=== PATIENT | female | born 1935 | race Caucasian/White ===

== ENCOUNTER → 2016-03-28 14:16 | Outpatient (CLI) | payer MEDICARE, OTHER ==
[2013-04-12 10:15] VITALS: BMI 26.7
[~2016-03-28 14:16] MED LIST: ACCUPRIL20 MG PO; ACCUPRIL5 MG; ACCURETIC 20-121 TAB OR; ASPIRIN325 MG PO; COSOPT EYE DROPS5 ML EACH EYE; HYDROCHLOROTH12.5 M1 PO; LEVOTHROID112 MCG PO; LOPRESSOR25 MG PO; LUMIGAN 0.03 %2.5 ML EACH EYE; SULAR34 MG PO; TYLENOL 325 MG325 MG PO; ZOCOR20 MG PO
== END | disposition home or self-care (01) ==
LOC: D.LAB 14:16
DX: E03.9 Hypothyroidism, unspecified (principal)

== ENCOUNTER → 2017-06-09 10:36 | Outpatient (CLI) | payer MEDICARE, OTHER ==
[2013-04-12 10:15] VITALS: BMI 26.7
[2017-06-09 11:12] LABS: BASOPHILS 0.4 % (0-2); EOSINOPHILS 2.2 % (0-7); HEMATOCRIT 41.5 % (36.0-48.0); HEMOGLOBIN 13.5 g/dL (12-16); LYMPHOCYTES 14.1 % (15-50); MCH 33.3 pg (26.0-34.0); MCHC 32.5 g/dL (31.0-37.0); MCV 102.5 fL (80.0-100.0); MEAN PLATELET VOLUME 9.2 fL (7.4-10.4); MONOCYTES 9.6 % (2-11); NEUTROPHILS 73.7 % (40-80); PLATELET COUNT 149 10x3/uL (130-400); RBC 4.05 10x6/uL (4.00-5.40); RDW 13.4 % (11.5-14.5); WBC 4.5 10x3/uL (4.8-10.8)
[2017-06-09 11:47] LABS: ALBUMIN 3.9 g/dL (3.4-5.0); ANION GAP 15.2 mmol/L (8-16); BILIRUBIN - TOTAL 0.44 mg/dL (0.2-1.3); CALCIUM 9.1 mg/dL (8.5-10.1); CARBON DIOXIDE 27.6 mmol/L (21.0-32.0); CHOL - HDL RATIO 1.7 ratio (2.3-4.1); CREATININE - SERUM 1.2 mg/dL (0.6-1.3); LDL-HDL RATIO 0.6 ratio (1.5-3.5); POTASSIUM - SERUM 3.8 mmol/L (3.5-5.1); PROTEIN - SERUM 7.5 g/dL (6.4-8.2); THYROID STIMULATING HORMONE 5.3 uIU/mL (0.36-3.74)
== END | disposition home or self-care (01) ==
LOC: D.LAB 10:36
PROVIDERS: Family Medicine
DX: Z00.00 Encounter for general adult medical examination without abnormal findings (principal); E03.9 Hypothyroidism, unspecified; I10 Essential (primary) hypertension

== ENCOUNTER → 2017-09-09 09:03 | Outpatient (CLI) | payer MEDICARE, OTHER ==
[2013-04-12 10:15] VITALS: BMI 26.7
== END | disposition home or self-care (01) ==
LOC: D.LAB 09-08 08:15
DX: E03.9 Hypothyroidism, unspecified (principal)

== ENCOUNTER → 2018-01-08 10:06 | Outpatient (CLI) | payer MEDICARE, OTHER ==
[2013-04-12 10:15] VITALS: BMI 26.7
== END | disposition home or self-care (01) ==
LOC: D.LAB 08:00
DX: E03.9 Hypothyroidism, unspecified (principal)

== ENCOUNTER → 2018-03-12 10:21 | Outpatient (CLI) | payer MEDICARE, OTHER ==
[2013-04-12 10:15] VITALS: BMI 26.7
== END | disposition home or self-care (01) ==
LOC: D.LAB 08:00
DX: E03.9 Hypothyroidism, unspecified (principal)

== ENCOUNTER → 2018-05-20 10:30 | Outpatient (CLI) | payer MEDICARE, OTHER ==
[2013-04-12 10:15] VITALS: BMI 26.7
== END | disposition home or self-care (01) ==
LOC: D.LAB 10:30
PROVIDERS: ATTEND Family Medicine
DX: E03.9 Hypothyroidism, unspecified (principal); R42 Dizziness and giddiness; M19.90 Unspecified osteoarthritis, unspecified site; I10 Essential (primary) hypertension

== ENCOUNTER → 2018-06-12 15:05 | Outpatient (CLI) | payer MEDICARE, OTHER ==
[2013-04-12 10:15] VITALS: BMI 26.7
[2018-06-12 16:20] LABS: HEMATOCRIT 38.4 % (36.0-48.0); HEMOGLOBIN 12.7 g/dL (12-16); LYMPHOCYTES 8.8 % (15-50); MCH 32.7 pg (26.0-34.0); MCHC 33.1 g/dL (31.0-37.0); MEAN PLATELET VOLUME 9.2 fL (7.4-10.4); NEUTROPHILS 80.5 % (40-80); PLATELET COUNT 166 10x3/uL (130-400); RBC 3.88 10x6/uL (4.00-5.40); WBC 5.8 10x3/uL (4.8-10.8)
[2018-06-12 16:35] LABS: ALBUMIN 3.5 g/dL (3.4-5.0); ANION GAP 12.9 mmol/L (8-16); BILIRUBIN - TOTAL 0.36 mg/dL (0.2-1.3); CALCIUM 8.5 mg/dL (8.5-10.1); CARBON DIOXIDE 31.5 mmol/L (21.0-32.0); CHOL - HDL RATIO 1.8 ratio (2.3-4.1); CREATININE - SERUM 1.2 mg/dL (0.6-1.3); LDL-HDL RATIO 0.7 ratio (1.5-3.5); POTASSIUM - SERUM 3.4 mmol/L (3.5-5.1); PRE-ALBUMIN 19.9 mg/dL (18.0-35.7); PROTEIN - SERUM 6.7 g/dL (6.4-8.2)
== END | disposition home or self-care (01) ==
LOC: D.US 15:00
PROVIDERS: ATTEND Family Medicine
DX: R60.0 Localized edema (principal); M79.605 Pain in left leg; M79.604 Pain in right leg

== ENCOUNTER → 2018-07-21 11:03 | Outpatient (CLI) | payer MEDICARE, OTHER ==
[2013-04-12 10:15] VITALS: BMI 26.7
== END | disposition home or self-care (01) ==
LOC: D.LAB 11:03
PROVIDERS: ATTEND Family Medicine
DX: E03.9 Hypothyroidism, unspecified (principal)

== ENCOUNTER 2018-09-10 14:54 | Emergency (ER) | payer MEDICARE, OTHER ==
[~2018-09-10] VITALS: Ht 165.1 cm; Wt 63.6 kg
[2018-09-10 15:23] LABS: BASOPHILS 0.3 % (0-2); EOSINOPHILS 1.1 % (0-7); HEMATOCRIT 40.6 % (36.0-48.0); HEMOGLOBIN 13.6 g/dL (12-16); LYMPHOCYTES 17.3 % (15-50); MCH 32.8 pg (26.0-34.0); MCHC 33.5 g/dL (31.0-37.0); MCV 97.8 fL (80.0-100.0); MEAN PLATELET VOLUME 9.2 fL (7.4-10.4); MONOCYTES 6.4 % (2-11); NEUTROPHILS 74.9 % (40-80); PLATELET COUNT 171 10x3/uL (130-400); RBC 4.15 10x6/uL (4.00-5.40); RDW 14.3 % (11.5-14.5); WBC 6.4 10x3/uL (4.8-10.8)
[2018-09-10 15:26] VITALS: Ht 165.1 cm; Wt 63.6 kg
[2018-09-10 15:31] LABS: APTT 23.4 SECONDS (22.8-39.4); INR 0.95 (0.85-1.17); PROTIME 12.2 SECONDS (11.6-15.0)
[2018-09-10 15:36] LABS: ALBUMIN 3.5 g/dL (3.4-5.0); ALKALINE PHOSPHATASE 87 U/L (46-116); ALT (SGPT) 21 U/L (10-68); BILIRUBIN - TOTAL 0.39 mg/dL (0.2-1.3); CALC OSMOLALITY 282 mosm/kg (275-300); CARBON DIOXIDE 28.7 mmol/L (21.0-32.0); CHLORIDE - SERUM 103 mmol/L (98-107); GLUCOSE 123 mg/dL (74-106); POTASSIUM - SERUM 3.5 mmol/L (3.5-5.1); PROTEIN - SERUM 6.9 g/dL (6.4-8.2); SODIUM 139 mmol/L (136-145); UREA NITROGEN 23 mg/dL (7-18); eGFR NON AFRICAN AMERICAN 56 mL/min (90-120)
[2018-09-10 15:52] LABS: CREATINE KINASE 76 UL (21-215); MAGNESIUM - SERUM 2.1 mg/dL (1.8-2.4)
[2018-09-10 17:00] VITALS: BP 201/96
== END 2018-09-10 17:00 | disposition other institution (70) ==
LOC: D.ER 14:54
PROVIDERS: Emergency Medicine
DX: I63.9 Cerebral infarction, unspecified (principal); R47.01 Aphasia